=== PATIENT | female | born 1965 | race African-American/Black ===

== ENCOUNTER 2020-06-02 00:58 | Emergency (ER) | payer OTHER ==
[~2020-06-02] VITALS: Ht 172.7 cm; Wt 72.6 kg
[2020-06-02] MEDS ORDERED: HYDROXYZINE HCL50 MG PO (02:46)
[2020-06-02] MEDS ORDERED: TRIAMCINOLONE A80 GM TOP (02:46)
[2020-06-02] MEDS ORDERED: LOSARTAN-HCTZ1 EAC3 PO (02:47)
[2020-06-02] MEDS ORDERED: FLUOCINONI0.05 %/31 TOP (03:02)
[2020-06-02 03:17] VITALS: BP 194/88
== END 2020-06-02 03:18 | disposition home or self-care (01) ==
LOC: ER 00:58
DX: L30.0 Nummular dermatitis (principal); L30.1 Dyshidrosis [pompholyx]; Z79.899 Other long term (current) drug therapy